=== PATIENT | male | born 1980 | race Caucasian/White ===

== ENCOUNTER 2017-02-11 21:31 | Emergency (ER) | payer BC ==
[~2017-02-11] VITALS: Ht 185.4 cm; Wt 110.2 kg
[2017-02-11 21:37] VITALS: TEMP 37.4; Ht 185.4 cm; Wt 110.2 kg
[2017-02-11] MEDS ORDERED: NAPR-1168 PO (22:03)
[2017-02-11] MEDS ORDERED: ACETAMINOPHEN 500 MG TAB PO STA (22:45)
[2017-02-11 23:09] LABS: BASO % 0.1 %; BASO ABS # 0.01 K/uL (0-0.2); HEMATOCRIT 44.5 % (42-52); IG% 0.3 %; LYMPH ABS # 2.49 K/uL (1.2-3.4); MEAN CELL VOLUME 70.7 fL (80-100); MEAN CORPUSCULAR HEMOGLOBIN 23.7 pg (25-34); MEAN CORPUSCULAR HGB CONC 33.5 g/dl (32-36); MEAN PLATELET VOLUME 9.9 fL (7.4-10.4); MONO % 8.5 %; NEUT % 68.1 %; PLATELET COUNT 207 K/uL (130-400); RED BLOOD COUNT 6.29 M/uL (4.7-6.1)
[2017-02-11 23:28] LABS: BUN/CREATININE RATIO 13.3 (10-20)
[2017-02-11] MEDS ORDERED: AZITHROMYCIN 250 MG TAB PO STA (23:30)
[2017-02-11 23:33] LABS: URIC ACID 6.4 mg/dl (2.6-7.2)
[2017-02-11] MEDS ORDERED: AZIT250T PO (23:53)
[2017-02-12 00:01] VITALS: BP 116/74; PULSE 122; O2SAT 95
--- NOTE | 2017-02-12 00:34 | EMERGENCY ROOM VISIT NOTE ---
History First contact with patient: 22:17 Chief Complaint: FEVER Stated Complaint: FEVER,COUGH,SWOLLEN LIP,SWOLLEN FOOT History of Present Illness The patient is a 36 year old male who presents to the Emergency Room with complaints of cough, congestion, myalgias, arthralgias, fevers for the past few days. Tmax 101.4. Patient took a couple of his Augmentin from [place] as he thought he had a bacterial infection and some naproxen from [place]. Patient states occasionally her the past several months his lip partially swells on the right-hand side. He was told to see an chinese teacher but has not. Patient denies chest pain, dyspnea, abdominal pain, neck stiffness, sore throat, earache. No travel outside the [place]. He has been the [place] this month. No travel outside the [place] recently. He has not received his flu vaccine. Review of Systems See HPI for pertinent positives & negatives. A total of 10 systems reviewed and were otherwise negative. Past Medical/Surgical History Medical Problems: (1) No significant past medical history Surgical Problems: (1) No history of previous surgery Social History Smoking Status: Never Smoker Alcohol Use: none Marital Status: single Occupation Status: employed Current/Historical Medications Scheduled Azithromycin (Zithromax), 500 MG PO DAILY Scheduled PRN Naproxen Ds (Naprosyn Ds), 550 MG PO Q12 PRN for Pain or Fever Physical Exam Vital Signs Date Time Temp Pulse Resp B/P (MAP) Pulse Ox O2 Delivery O2 Flow Rate FiO2 02/12/17 00:01 122 20 116/74 95 Room Air 02/11/17 21:37 37.4 128 20 139/88 95 Room Air Physical Exam VITALS: Vitals are noted on the nurse's note and reviewed by myself. Vital signs mildly tachycardic. GENERAL: Pleasant male anxious-appearing, in no acute distress, nondiaphoretic, well-developed well-nourished. SKIN: The skin was without rashes, erythema, edema, or bruising. There is no tenting of the skin. Capillary reflex less than 2 seconds. HEAD: Normocephalic atraumatic. EARS: External auditory canals clear, tympanic membranes pearly lemus without erythema or effusion bilaterally. EYES: Pupils equal round and reactive to light and accommodation. Conjunctivae without injection, sclerae without icterus. Extraocular movements intact. NOSE: Patent, turbinates without inflammation or discharge. No sinus tenderness. MOUTH: Mucous membranes mildly dry. Pharynx without erythema or exudate. Uvula midline. Airway patent. Tongue does not deviate. NECK: Supple without nuchal rigidity. No lymphadenopathy. No thyromegaly. Cervical spine is nontender. No JVD. HEART: Regular rate and rhythm without murmurs gallops or rubs. LUNGS: Clear to auscultation bilaterally without wheezes, rales or rhonchi. No dullness to percussion. No retractions or accessory muscle use. ABDOMEN: Positive bowel sounds x 4. Normal tympanic percussion. Soft, nontender, without masses or organomegaly. Moralez sign negative. No guarding or rebound tenderness. MUSCULOSKELETAL: No muscle atrophy, erythema, or edema noted. NEURO: Patient was alert and oriented to person place and time. Normal sensation to light and sharp touch. No focal neurological deficits. Medical Decision & Procedures Laboratory Results 02/11/17 23:00 Red Blood Count 6.29, Mean Corpuscular Volume 70.7, Mean Corpuscular Hemoglobin 23.7, Mean Corpuscular Hemoglobin Concent 33.5, Mean Platelet Volume 9.9, Neutrophils (%) (Auto) 68.1, Lymphocytes (%) (Auto) 22.0, Monocytes (%) (Auto) 8.5, Eosinophils (%) (Auto) 1.0, Basophils (%) (Auto) 0.1, Neutrophils # (Auto) 7.70, Lymphocytes # (Auto) 2.49, Monocytes # (Auto) 0.96, Eosinophils # (Auto) 0.11, Basophils # (Auto) 0.01 02/11/17 23:00 Test 02/11/17 00:00 02/11/17 23:00 Influenza Type A Antigen Neg for Influ A (NEG) Influenza Type B Antigen Neg for Influ B (NEG) White Blood Count 11.30 K/uL (4.8-10.8) Red Blood Count 6.29 M/uL (4.7-6.1) Hemoglobin 14.9 g/dL (14.0-18.0) Hematocrit 44.5 % (42-52) Mean Corpuscular Volume 70.7 fL (80-100) Mean Corpuscular Hemoglobin 23.7 pg (25-34) Mean Corpuscular Hemoglobin Concent 33.5 g/dl (32-36) Platelet Count 207 K/uL (130-400) Mean Platelet Volume 9.9 fL (7.4-10.4) Neutrophils (%) (Auto) 68.1 % Lymphocytes (%) (Auto) 22.0 % Monocytes (%) (Auto) 8.5 % Eosinophils (%) (Auto) 1.0 % Basophils (%) (Auto) 0.1 % Neutrophils # (Auto) 7.70 K/uL (1.4-6.5) Lymphocytes # (Auto) 2.49 K/uL (1.2-3.4) Monocytes # (Auto) 0.96 K/uL (0.11-0.59) Eosinophils # (Auto) 0.11 K/uL (0-0.5) Basophils # (Auto) 0.01 K/uL (0-0.2) RDW Standard Deviation 37.7 fL (36.4-46.3) RDW Coefficient of Variation 14.6 % (11.5-14.5) Immature Granulocyte % (Auto) 0.3 % Immature Granulocyte # (Auto) 0.03 K/uL (0.00-0.02) Anion Gap 8.0 mmol/L (3-11) Est Creatinine Clear Calc Drug Dose 135.5 ml/min Estimated GFR () 113.3 Estimated GFR (Non- 97.8 BUN/Creatinine Ratio 13.3 (10-20) Uric Acid 6.4 mg/dl (2.6-7.2) Calcium Level 9.0 mg/dl (8.5-10.1) Medications Administered Medications (Trade) Dose Ordered Sig/Corine Route Start Time Stop Time Status Last Admin Dose Admin Acetaminophen (Tylenol Tab) 1,000 mg NOW STAT PO 02/11/17 22:45 02/11/17 22:47 DC 02/11/17 22:56 1,000 MG Azithromycin (Zithromax Tab) 500 mg NOW STAT PO 02/11/17 23:30 02/11/17 23:32 DC 02/11/17 23:58 500 MG ED Course Prior records/ancillary studies reviewed. Triage Nursing notes reviewed. Additional history obtained from family. The patient's history was concerning for fever. Differential diagnosis: Etiologies such as viral syndrome, otitis, pharyngitis, pneumonia, influenza, meningitis, urinary tract infection, sepsis, bacteremia, as well as others were entertained. Physical examination: Patient is alert and anxious-appearing ER treatment provided: Zithromax On reassessment the patient felt better. Diagnostics interpreted by me: The labs revealed mild leukocytosis. Negative flu Imaging studies: Chest x-ray concerning for left lower lobe pneumonia per my interpretation. This appears to be consistent with pneumonia. Patient is well-appearing. He is tolerating fluids. He is not hypoxic. He was started on antibiotics. He has no current active medical problems. He is a professor at [employer]. Patient was advised take medications as directed and to follow-up with the [employer] clinic in a few days or here in the ER sooner for high fevers, lethargy, chest pain, worsening signs or symptoms or as needed. By the evaluation outlined above emergent etiologies such as otitis, pharyngitis, meningitis, urinary tract infection, sepsis, bacteremia, as well as others were deemed relatively unlikely. The pt informed about the findings as listed above. All questions were answered and pleased with the treatment. Return instructions were outlined and the patient was discharged in stable condition. Outpatient prescription management: Zithromax Referral: The patient was referred back to their primary care physician for follow-up in 2 to 3 days for a recheck of the current condition. Case reviewed with my attending. Medical Decision As above Medication Reconcilliation Current Medication List: was personally reviewed by me Blood Pressure Screening Patient's blood pressure: Normal blood pressure Impression Primary Impression: Pneumonia Departure Information Dispostion Home / Self-Care Condition GOOD Prescriptions Azithromycin (Zithromax) 250 Mg Tab 500 MG PO DAILY for 4 Days, #8 TAB Prov: Yana Clifton PA-C 02/11/17 Forms HOME CARE DOCUMENTATION FORM, School Instructions, Return To School: 2 days IMPORTANT VISIT INFORMATION Patient Instructions Pneumonia Tx, My [facility] Additional Instructions Azithromycin(Zithromax) 250mg: Take 2 tabs once a day for 4 additional days. All antibiotics can cause diarrhea. If this occurs and you feel worse or it does not resolve in 1-2 days follow up with your doctor or return to the Emergency Department as this could be signs of serious underlying problems. Any medication can cause an allergic reaction, stop the pills immediately and return to the ER for rash, hives, breathing difficulties, or swelling. Acetaminophen(Tylenol) may be used for fever or pain. Use 1000mg every six hours as needed. Avoid using more than 3000mg in a 24 hour period. AND/OR Ibuprofen(Motrin, Advil) may be used for fever or pain. Use 600mg every six hours as needed. Take with food. Avoid using more than 2400mg in a 24 hour period. Do not use 2400mg per day for more than three consecutive days without physician direction. Prolonged inappropriate use can lead to stomach upset or ulcers. Controlling your fever with Tylenol and Ibuprofen as above will make you feel better. Rest and drink plenty of fluids. Avoid strenuous activity until your symptoms resolve and your breathing returns to normal. Continue current medications. Return to the ER for chest pain, difficulty breathing, persistent fevers, vomiting, worsening of your condition, or as needed. Follow-up with family care in 2-3 days. School Instructions Return To School: 2 days Problem Qualifiers Primary Impression: Pneumonia Pneumonia type: due to unspecified organism Laterality: left Lung location : lower lobe of lung Qualified Codes: J18.1 - Lobar pneumonia, unspecified organism
[2017-02-12 00:37] LABS: COMPLETE YES; MICROCYTOSIS PRESENT
[2017-02-12 00:49] LABS: INFLUENZA A PCR Neg for Influ A (NEG); INFLUENZA B PCR Neg for Influ B (NEG)
--- NOTE | 2017-02-12 07:13 | DIAGNOSTIC IMAGING REPORT ---
TWO VIEW CHEST CLINICAL HISTORY: Cough and fever. FINDINGS: PA and lateral chest radiographs are obtained. No prior studies are available for comparison at the time of dictation. The cardiomediastinal silhouette is unremarkable. A prominent epicardial fat pad is noted at the left lung base. The lungs and pleural spaces are clear. There is no pneumothorax. The bony thorax appears intact. IMPRESSION: No active disease in the chest. Electronically signed by: Aric Tenorio M.D. 02/12/2017 7:12 AM Dictated Date/Time: 02/12/2017 7:12 AM
== END 2017-02-12 00:19 | disposition home or self-care (01) ==
LOC: C.EDB 21:32 → C.EDC 02-12 00:19
DX: J18.9 Pneumonia, unspecified organism (principal)

== ENCOUNTER 2017-07-22 18:13 | Emergency (ER) | payer BC, OTHER ==
[~2017-07-22] VITALS: Ht 185.4 cm; Wt 103.1 kg
[~2017-07-22 18:13] MED LIST: NAPR-1168 PO
[2017-07-22 18:14] VITALS: TEMP 37.3; Ht 185.4 cm; Wt 103.1 kg
[2017-07-22] MEDS ORDERED: SODIUM CHLORIDE 0.9% 1000ML 1,000 ML IV STA (18:24)
[2017-07-22] MEDS ORDERED: METOCLOPRAMIDE HCL INJ 5 MG/ML 2 ML VIAL IV STA (18:24)
--- NOTE | 2017-07-22 18:39 | EMERGENCY ROOM VISIT NOTE ---
History Report prepared by Sawyer: Marychuy Wilson Under the Supervision of: Dr. Joce Mccormick M.D. First contact with patient: 18:17 Chief Complaint: ABDOMINAL PAIN Stated Complaint: STOMACH PAIN History of Present Illness The patient is a 36 year old male who presents to the Emergency Room with complaints of persistent right sided abdominal pain that began about 13 hours ago. He reports that he was in [place] 2 days ago, noting that on his flight back he began experiencing some abdominal pain. The patient notes that his abdominal pain is right sided but radiates to the middle of his abdomen. He has been experiencing some bloating and weakness, but denies any current dizziness, nausea, diarrhea, or urinary symptoms. The patient reports that the last time he ate anything was about 4 hours ago, noting the hot tea he had helped relieve some of his symptoms. Source of History: patient Onset: about 13 hours Position: abdomen (RLQ & RUQ) Quality: other (abdominal pain) Timing: other (persistent) Modifying Factors (Relieving): other (hot tea) Associated Symptoms: + weakness (some), No nausea, No diarrhea, No urinary symptoms Note: Patient denies any current dizziness. Associated symptoms include: bloating Review of Systems See HPI for pertinent positives & negatives. A total of 10 systems reviewed and were otherwise negative. Past Medical & Surgical Medical Problems: (1) No significant past medical history Surgical Problems: (1) No history of previous surgery Family History Diabetes mellitus Hypertension Social History Smoking Status: Never Smoker Smokeless Tobacco Use: No Alcohol Use: none Drug Use: none Marital Status: single Occupation Status: employed Current/Historical Medications No Active Prescriptions or Reported Meds Allergies Coded Allergies: Dextromethorphan (Unverified Allergy, Unknown, SKIN RASH, 02/11/17) Guaifenesin (Unverified Allergy, Unknown, SKIN RASH, 02/11/17) Penicillins (Verified Allergy, Unknown, childhood allergy, 02/11/17) Yellow Dye (Unverified Allergy, Unknown, SKIN RASH, 02/11/17) Physical Exam Vital Signs Date Time Temp Pulse Resp B/P (MAP) Pulse Ox O2 Delivery O2 Flow Rate FiO2 07/22/17 20:00 67 17 115/76 97 Room Air 07/22/17 18:14 37.3 95 17 143/96 97 Room Air Physical Exam GENERAL: Awake, alert, well-appearing, in no acute distress HENT: Normocephalic, atraumatic. Oropharynx unremarkable. EYES: Normal conjunctiva. Sclera non-icteric. NECK: Supple. No nuchal rigidity. FROM. No JVD. RESPIRATORY: Clear to auscultation. CARDIAC: Regular rate, normal rhythm. Extremities warm and well perfused. Pulses equal. ABDOMEN: Tenderness in right upper and lower quadrant. Soft, non-distended. No rebound or guarding. No masses. RECTAL: Deferred. MUSCULOSKELETAL: Chest examination reveals no tenderness. The back is symmetrical on inspection without obvious abnormality. There is no CVA tenderness to palpation. No joint edema. LOWER EXTREMITIES: Calves are equal size bilaterally and non-tender. No edema. No discoloration. NEURO: Normal sensorium. No sensory or motor deficits noted. SKIN: No rash or jaundice noted. Medical Decision & Procedures ER Provider Diagnostic Interpretation: Radiology results as stated below per my review and radiologist interpretation: ABDOMEN LIMITED (US) HISTORY: 36 years-old Male Pt c/o RUQ abd pain acute right upper quadrant abdominal pain COMPARISON: None available TECHNIQUE: Multiple real-time sonographic images of the abdominal right upper quadrant were obtained assessing grayscale appearance and color flow FINDINGS: Pancreas is obscured by bowel gas. The liver is unremarkable without intrahepatic biliary ductal dilation or focal mass identified. There is a mild amount of layering sludge within the gallbladder lumen, predominantly within the distribution of the gallbladder neck. No shadowing cholelithiasis, wall thickening or pericholecystic fluid. Sonographic Moralez sign reported as negative. Common bile duct is normal, 2 mm. Imaged right kidney is unremarkable without hydronephrosis. IMPRESSION: 1. Mild gallbladder sludge without shadowing cholelithiasis or sonographic evidence of acute cholecystitis. 2. No biliary ductal dilation. The above report was generated using voice recognition software. It may contain grammatical, syntax or spelling errors. Electronically signed by: James Sloan M.D. 07/22/2017 7:39 PM Dictated Date/Time: 07/22/2017 7:37 PM Laboratory Results 07/22/17 18:32 Red Blood Count 6.23, Mean Corpuscular Volume 70.9, Mean Corpuscular Hemoglobin 23.8, Mean Corpuscular Hemoglobin Concent 33.5, Mean Platelet Volume 10.0, Neutrophils (%) (Auto) , Lymphocytes (%) (Auto) , Monocytes (%) (Auto) , Eosinophils (%) (Auto) , Basophils (%) (Auto) , Neutrophils # (Auto) , Lymphocytes # (Auto) , Monocytes # (Auto) , Eosinophils # (Auto) , Basophils # ( Auto) 07/22/17 18:32 Test 07/22/17 18:32 07/22/17 18:40 White Blood Count 11.84 K/uL (4.8-10.8) Red Blood Count 6.23 M/uL (4.7-6.1) Hemoglobin 14.8 g/dL (14.0-18.0) Hematocrit 44.2 % (42-52) Mean Corpuscular Volume 70.9 fL (80-100) Mean Corpuscular Hemoglobin 23.8 pg (25-34) Mean Corpuscular Hemoglobin Concent 33.5 g/dl (32-36) Platelet Count 211 K/uL (130-400) Mean Platelet Volume 10.0 fL (7.4-10.4) Neutrophils (%) (Auto) % Lymphocytes (%) (Auto) % Monocytes (%) (Auto) % Eosinophils (%) (Auto) % Basophils (%) (Auto) % Neutrophils # (Auto) K/uL (1.4-6.5) Lymphocytes # (Auto) K/uL (1.2-3.4) Monocytes # (Auto) K/uL (0.11-0.59) Eosinophils # (Auto) K/uL (0-0.5) Basophils # (Auto) K/uL (0-0.2) RDW Standard Deviation 38.5 fL (36.4-46.3) RDW Coefficient of Variation 15.0 % (11.5-14.5) Immature Granulocyte % (Auto) % Immature Granulocyte # (Auto) K/uL (0.00-0.02) Neutrophils % (Manual) 68.6 % Lymphocytes % (Manual) 7.0 % Variant Lymphocytes % (manual) 18.3 % Monocytes % (Manual) 5.2 % Eosinophils % (Manual) 0.9 % Neutrophils # (Manual) 8.12 K/uL (1.4-6.5) Total Absolute Neutrophils 8.12 K/uL (1.4-6.5) Lymphocytes # (Manual) 0.83 K/uL (1.2-3.4) Absolute Variant Lymphocytes 2.17 K/uL Total Absolute Lymphocytes 3.00 K/uL (1.2-3.4) Monocytes # (Manual) 0.62 K/uL (0.11-0.59) Eosinophils # (Manual) 0.11 K/uL (0-0.5) Microcytosis PRESENT Anion Gap 9.0 mmol/L (3-11) Est Creatinine Clear Calc Drug Dose 152.6 ml/min Estimated GFR () 131.1 Estimated GFR (Non- 113.1 BUN/Creatinine Ratio 13.5 (10-20) Calcium Level 9.2 mg/dl (8.5-10.1) Total Bilirubin 0.7 mg/dl (0.2-1) Direct Bilirubin 0.2 mg/dl (0-0.2) Aspartate Amino Transf (AST/SGOT) 14 U/L (15-37) Alanine Aminotransferase (ALT/SGPT) 36 U/L (12-78) Alkaline Phosphatase 99 U/L (45-117) Total Protein 8.1 gm/dl (6.4-8.2) Albumin 4.4 gm/dl (3.4-5.0) Lipase 79 U/L (73-393) Urine Color YELLOW Urine Appearance CLEAR (CLEAR) Urine pH 5.0 (4.5-7.5) Urine Specific [place] 1.016 (1.000-1.030) Urine Protein NEG (NEG) Urine Glucose (UA) NEG (NEG) Urine Ketones TRACE (NEG) Urine Occult Blood TRACE (NEG) Urine Nitrite NEG (NEG) Urine Bilirubin NEG (NEG) Urine Urobilinogen NEG (NEG) Urine Leukocyte Esterase NEG (NEG) Urine WBC (Auto) 1-5 /hpf (0-5) Urine RBC (Auto) 0-4 /hpf (0-4) Urine Hyaline Casts (Auto) 1-5 /lpf (0-5) Urine Epithelial Cells (Auto) 0-5 /lpf (0-5) Urine Bacteria (Auto) NEG (NEG) Labs reviewed by ED physician. Medications Administered Medications (Trade) Dose Ordered Sig/Corine Route Start Time Stop Time Status Last Admin Dose Admin Metoclopramide HCl (Reglan Inj) 10 mg NOW STAT IV 07/22/17 18:24 07/22/17 18:27 DC 07/22/17 18:24 10 MG Sodium Chloride 1,000 ml @ 999 mls/hr Q1H1M STAT IV 07/22/17 18:24 07/22/17 19:24 DC 07/22/17 18:24 999 MLS/HR ED Course 1816: Past medical records reviewed. The patient was evaluated in room B7. A complete history and physical examination was performed. 1823: Ordered Sodium Chloride 1000ml @ 999 mls/hr IV and Reglan Inj 10mg IV. 1842: I reevaluated the patient, who was resting. I updated him on some test findings and discussed the risk factors of having a CT scan performed. 1844: Ordered Ioversol 100ml IV. 1952: I reevaluated the patient, who has exquisitely strong tenderness in his right lower quadrant. I strongly recommended a CT of his abdomen/pelvis, but he refused. I noted an elevation of his white blood cell count and left shift. I discussed all other test findings and the treatment plan. He verbalized complete understanding and agreement. The patient is ready for discharge. 2025: I reevaluated the patent. He asked for an MRI and an ultrasound, I advised that ultrasounds are usually recommended for children and discussed the cost of having an MRI over a CT scan. He asked for a referral to [facility], which we cannot do, but I did refer him to Dr. Leos - [facility]. I also explained that radiation is cumulative and it does not matter that he last had one 45 days ago. The patient said that he will follow up with his surgeon tomorrow. Medical Decision Differential diagnosis: Etiologies such as appendicitis, diverticulitis, PUD, biliary pathology, UTI, pancreatitis, obstruction, mesenteric ischemia, aortic pathology, infections, inflammatory bowel disease, renal colic, as well as others were entertained. This is a 36-year-old male who presents the emergency department complaining of complaining of right lower quadrant abdominal pain. The patient does have an elevation in his white blood cell count and serial abdominal examinations have revealed the patient to have right lower quadrant abdominal pain. The patient is concerned about radiation exposure from a CAT scan however I stressed that we were trying to rule things out with an ultrasound first as well as laboratory work. The patient does have an elevation in his white blood cell count with a left shift. In addition he appears to have a normal urine and no hydronephrosis on ultrasound. His ultrasound of his gallbladder revealed sludge. Because a repeat abdominal examination revealed tenderness and guarding I strongly recommended that the patient received a CAT scan of the abdomen and pelvis. The patient however is reluctant to do this and he notes that he is pain-free at this point. He wishes to be discharged. I recommended if he starts running fevers for the pain comes back in a severe that he have a CAT scan of the abdomen pelvis performed. I recommended a clear liquid diet for the next 48 hours and recommended follow-up with surgery. Medication Reconcilliation Current Medication List: was personally reviewed by me Blood Pressure Screening Patient's blood pressure: Normal blood pressure Blood pressure disposition: Did not require urgent referral Impression Primary Impression: Right lower quadrant abdominal pain Scribe Attestation The scribe's documentation has been prepared under my direction and personally reviewed by me in its entirety. I confirm that the note above accurately reflects all work, treatment, procedures, and medical decision making performed by me. Departure Information Dispostion Home / Self-Care Prescriptions No Active Prescriptions or Reported Meds Referrals No Doctor, Assigned (PCP) Forms Call Back Authorization, HOME CARE DOCUMENTATION FORM, IMPORTANT VISIT INFORMATION Patient Instructions My [facility] Additional Instructions Clear liquid diet next 48 hours Return if you develop fevers, chills, severe abd pain Follow up with DR Salguero's office for gallbladder You have been examined and treated today on an emergency basis only. This is not a substitute for, or an effort to provide, complete comprehensive medical care. It is impossible to recognize and treat all injuries or illnesses in a single emergency department visit. It is therefore important that you follow up closely with your PCP. Call as soon as possible for an appointment. Thank you for your time and consideration. I look forward to speaking with you again soon. Please don't hesitate to call us if you have any questions.
[2017-07-22] MEDS ORDERED: OPTIRAY 320 IV PRN (18:45)
[2017-07-22 18:56] LABS: HEMATOCRIT 44.2 % (42-52); HEMOGLOBIN 14.8 g/dL (14.0-18.0); MEAN CELL VOLUME 70.9 fL (80-100); MEAN CORPUSCULAR HEMOGLOBIN 23.8 pg (25-34); MEAN CORPUSCULAR HGB CONC 33.5 g/dl (32-36); PLATELET COUNT 211 K/uL (130-400); RED CELL DISTRIBUTION WIDTH SD 38.5 fL (36.4-46.3); WHITE BLOOD COUNT 11.84 K/uL (4.8-10.8)
[2017-07-22 19:12] LABS: CREATININE 0.86 mg/dl (0.60-1.40)
[2017-07-22 19:13] LABS: ALBUMIN 4.4 gm/dl (3.4-5.0); CALCIUM 9.2 mg/dl (8.5-10.1); POTASSIUM 3.7 mmol/L (3.5-5.1)
[2017-07-22 19:15] LABS: TOTAL PROTEIN 8.1 gm/dl (6.4-8.2)
--- NOTE | 2017-07-22 19:40 | DIAGNOSTIC IMAGING REPORT ---
ABDOMEN LIMITED (US) HISTORY: 36 years-old Male Pt c/o RUQ abd pain acute right upper quadrant abdominal pain COMPARISON: None available TECHNIQUE: Multiple real-time sonographic images of the abdominal right upper quadrant were obtained assessing grayscale appearance and color flow FINDINGS: Pancreas is obscured by bowel gas. The liver is unremarkable without intrahepatic biliary ductal dilation or focal mass identified. There is a mild amount of layering sludge within the gallbladder lumen, predominantly within the distribution of the gallbladder neck. No shadowing cholelithiasis, wall thickening or pericholecystic fluid. Sonographic Moralez sign reported as negative. Common bile duct is normal, 2 mm. Imaged right kidney is unremarkable without hydronephrosis. IMPRESSION: 1. Mild gallbladder sludge without shadowing cholelithiasis or sonographic evidence of acute cholecystitis. 2. No biliary ductal dilation. The above report was generated using voice recognition software. It may contain grammatical, syntax or spelling errors. Electronically signed by: James Sloan M.D. 07/22/2017 7:39 PM Dictated Date/Time: 07/22/2017 7:37 PM
[2017-07-22 20:00] VITALS: BP 115/76; PULSE 67; O2SAT 97
== END 2017-07-22 20:28 | disposition home or self-care (01) ==
LOC: C.EDB 18:14
DX: R10.31 Right lower quadrant pain (principal); Z83.3 Family history of diabetes mellitus; Z82.49 Family history of ischemic heart disease and other diseases of the circulatory system; Z88.0 Allergy status to penicillin; Z88.6 Allergy status to analgesic agent; Z88.8 Allergy status to other drugs, medicaments and biological substances; Z91.09 Other allergy status, other than to drugs and biological substances